=== PATIENT | male | born 1995 | race Two or more races ===

== ENCOUNTER → 2025-01-29 | Emergency (ER) | payer BC ==
[~2025-01-29] VITALS: Ht 165.1 cm; Wt 49.4 kg
[~2025-01-29] MED LIST: DEXAMETHASONE SODIUM PHOSPHATE 4 MG/ML VIAL IM ONE; KETOROLAC TROMETHAMINE 30 MG VIAL IM ONE
[2025-01-29 10:22] VITALS: BP 123/78; O2SAT 96
== END | disposition home or self-care (01) ==
LOC: ER 10:08
DX: J03.80 Acute tonsillitis due to other specified organisms (principal)